=== PATIENT | male | born 1985 | race Caucasian/White ===

== ENCOUNTER 2017-12-08 17:30 | Emergency (ER) | payer SELFPAY ==
[2017-12-08 17:32] VITALS: BP 139/87; PULSE 86; RESP 16; TEMP 36.7; BMI 26.4
--- NOTE | 2017-12-08 18:39 | ED.VISSUMM ---
- ER Visit Summary Date of Service: 12/08/17 Chief Complaint: Dog bite History of Present Illness: The patient is a 32 M who presents with a dog bite. This happened 2 days ago. It was a stray dog in his barn. He sustained a dog bite to the palm of the right hand and also on the right radial wrist area. He states it has now become swollen which is why he came in today. He denies a fever. His last tetanus shot was unknown Physical Examination: Vital signs are reviewed. Right hand exam reveals swollen hand. No significant erythema. He has a 1 cm puncture wound on the palm of the hand. There is also a smaller puncture wound on the right radial wrist area Test Results: None indicated Emergency Department Course and Treatment: Patient's tetanus was updated. He was given rabies immunoglobulin around the puncture wounds. He is also given rabies vaccine. He will be placed on Augmentin. He will come back on day 3, 714 for rabies vaccine Treatment Plan: [] Disposition: Discharge Impression: Dog bite, right hand, rabies immunization This note was generated with [employer] dictation software. It may contain incorrect words, spelling, and punctuation that were not noted in review of the chart prior to signing ED Disposition - Plan for ED Patient: Chief Complaint: Bite Referrals: Phillip Flowers DO [Primary Care Provider] -
--- NOTE | 2017-12-08 18:42 | ED.DEP ---
ED Disposition - Plan for ED Patient: Disposition: Home or Assisted Living Chief Complaint: Bite Instructions: ED Bite Dog, Rabies Immune Globulin (Human) Solution for injection Prescriptions: Amox/Clavulanate Tablet [Augmentin Tablet] 875 mg PO Q12H #20 tab Rabies Vacc, Human Diploid/Pf [Imovax Rabies Vaccine Vial] 2.5 unit IM X1 #3 vial Referrals: Phillip Flowers DO [Primary Care Provider] -
[2017-12-08] MEDS: Diphth,Pertuss(Acell),Tet Vac 0.5 ML Vial IM (19:12)
[2017-12-08] MEDS: Amox/Clavulanate 875 MG Tablet PO (19:12)
[2017-12-08] MEDS: Rabies Immune Globulin 150 UNITS/ML 1670 UNITS IM (19:13)
[2017-12-08] MEDS: Rabies Vaccine,Human Diploid 2.5 UNITS Vial IM (19:15)
[2017-12-08 19:26] VITALS: BP 140/90; PULSE 59; RESP 16; TEMP 36.6; O2SAT 100
== END 2017-12-08 19:28 | disposition home or self-care (01) ==
PROVIDERS: Emergency Provider Emergency Medicine; Family Provider Family Medicine; PCP Family Medicine
DX: S60.571A Other superficial bite of hand of right hand, initial encounter (principal); S60.871A Other superficial bite of right wrist, initial encounter; Z23 Encounter for immunization; W54.0XXA Bitten by dog, initial encounter; Y93.9 Activity, unspecified; Y92.9 Unspecified place or not applicable; Z72.0 Tobacco use
CPT/HCPCS: 90375; 90675; 90715; 99283

== ENCOUNTER 2017-12-11 20:33 | Outpatient (CLI) | payer SELFPAY ==
[2017-12-11 21:07] VITALS: BP 123/76; PULSE 76; RESP 16; TEMP 37.2; O2SAT 96; BMI 25.8
[2017-12-11] MEDS: Rabies Vaccine,Human Diploid 2.5 UNITS Vial IM (21:07)
--- NOTE | 2017-12-11 21:11 | ED.RN ---
PT REFUSED TO STAY FOR SHOT TIME.
--- NOTE | 2017-12-11 21:14 | ED.RN ---
PT AMBULATED OUT OF ED. RESP EVEN AND UNLABORED, PT A&O X 3, NO DISTRESS NOTED. GAIT STEADY.
== END 2017-12-11 21:34 ==
PROVIDERS: Emergency Provider Emergency Medicine; Family Provider Family Medicine; PCP Family Medicine; Visit Provider Emergency Medicine
DX: Z23 Encounter for immunization (principal)
CPT/HCPCS: 90675